=== PATIENT | male | born 1980 | race Hispanic/Latino ===

== ENCOUNTER 2017-12-24 09:52 | Emergency (ER) | payer OTHER ==
[2017-12-24 09:54] VITALS: BMI 38.0
[2017-12-24] MEDS ORDERED: Morphine 4 MG/ML VIAL IVP ONE ×2 (10:12→11:02)
[2017-12-24] MEDS ORDERED: Sodium Chloride 0.9% 1,000 ML IV STA (10:13)
[2017-12-24] MEDS ORDERED: Morphine 4 MG/ML VIAL ONE ×2 (10:14→11:13)
[2017-12-24] MEDS ORDERED: Midazolam 2 MG/2 ML VIAL IV ONE ×3 (10:45→11:42)
[2017-12-24] MEDS ORDERED: Midazolam 2 MG/2 ML VIAL ONE ×3 (11:13→11:35)
--- NOTE | 2017-12-24 12:37 | ED PDOC ---
Upper Extremity Pain/Injury Time Seen by Provider: 12/24/17 09:59 Chief Complaint (Nursing): Upper Extremity Problem/Injury History Per: Patient ([place] He grab the rail with his left arm and felt severe pain. He denies numbness or loss of sensation in the areas below the shoulder or elbow. Pain is severe and he cannot move the shoulder. ) History/Exam Limitations: no limitations Past Medical History Reviewed: Historical Data, Nursing Documentation, Vital Signs Vital Signs: Last Vital Signs Temp 98.2 F 12/24/17 10:54 Pulse 97 H 12/24/17 11:40 Resp 17 12/24/17 11:40 BP 148/73 12/24/17 11:40 Pulse Ox 97 12/24/17 11:20 - Medical History PMH: Anxiety, Hyperthyroidism Denies: Chronic Kidney Disease - Family History Family History: States: No Known Family Hx - Allergies Allergies/Adverse Reactions: Allergies Allergy/AdvReac Type Severity Reaction Status Date / Time amoxicillin Allergy Verified 12/24/17 10:12 Review of Systems ROS Statement: Except As Marked, All Systems Reviewed And Found Negative Constitutional: Negative for: Fever, Chills Musculoskeletal: Positive for: Shoulder Pain Physical Exam - Reviewed Nursing Documentation Reviewed: Yes Vital Signs Reviewed: Yes - Physical Exam Appears: Positive for: Well, Non-toxic, No Acute Distress, Uncomfortable Head Exam: Positive for: ATRAUMATIC, NORMAL INSPECTION, NORMOCEPHALIC Skin: Positive for: Normal Color, Warm, DRY Eye Exam: Positive for: Normal appearance ENT: Positive for: Normal ENT Inspection Neck: Positive for: Normal, Painless ROM Cardiovascular/Chest: Positive for: Regular Rate, Rhythm Respiratory: Positive for: CNT, Normal Breath Sounds Gastrointestinal/Abdominal: Positive for: Normal Exam, Soft Back: Positive for: Normal Inspection Extremity: Positive for: Normal ROM Neurologic/Psych: Positive for: Alert, Oriented - ECG O2 Sat by Pulse Oximetry: 97 Medical Decision Making Medical Decision Making: Patient underwent conscious sedation with the use of morphine and versed for analgesia, anxiolysis. His vitals signs were monitored as per protocol by RN. Patient remained hemodynamically stable throughout. He tolerated the procedure well. Post reduction x-rays of the same shoulder shows good re-placement of the joint. Procedures - Joint Reduction Joint Reduction Site: shoulder (L) Conscious Sedation: Yes (Consent obtained for both sedation and procedure.) Reduction Attempts: 1 Pre-Procedure NV Exam: Yes Post Joint Reduction Film: joint reduced Disposition - Clinical Impression Clinical Impression: Shoulder dislocation - Patient ED Disposition Is Patient to be Admitted: No Doctor Will See Patient In The: Office Counseled Patient/Family Regarding: Diagnosis, Need For Followup - Disposition Disposition: Routine/Home Disposition Time: 13:00 Condition: STABLE Additional Instructions: Followup with your PMD near home for referral to an orthopedist. Instructions: Shoulder Dislocation
[2017-12-24 13:47] VITALS: BP 142/75; PULSE 79; RESP 15; TEMP 98.1; O2SAT 99
--- NOTE | 2017-12-24 14:29 | RAD ---
Date of service: 12/24/2017 PROCEDURE: Radiographs of the Left Shoulder HISTORY: felt shoulder pop during fall COMPARISON: No prior. FINDINGS: BONES: Anterior inferior dislocation of the left humeral head at the glenohumeral joint. The acromioclavicular joint is unremarkable appearing. No destructive bony lesion or fracture identified. JOINTS: As above. SOFT TISSUES: Normal. OTHER FINDINGS: None. IMPRESSION: Anteroinferior dislocation of the left humeral head relative to the glenoid process left shoulder. No fracture identified.
--- NOTE | 2017-12-24 15:02 | RAD ---
Date of service: 12/24/2017 PROCEDURE: Radiographs of the Left Shoulder HISTORY: post reduction COMPARISON: No prior. FINDINGS: BONES: Normal. No fracture. JOINTS: Normal. Glenohumeral and acromioclavicular joints preserved. No osteoarthritis. SOFT TISSUES: Normal. OTHER FINDINGS: None. IMPRESSION: Normal radiographs of the left shoulder.
== END 2017-12-24 13:47 | disposition home or self-care (01) ==
LOC: H.ER 09:52
DX: S43.005A Unspecified dislocation of left shoulder joint, initial encounter (principal); W19.XXXA Unspecified fall, initial encounter; Y92.89 Other specified places as the place of occurrence of the external cause; E05.90 Thyrotoxicosis, unspecified without thyrotoxic crisis or storm; F41.9 Anxiety disorder, unspecified
CPT/HCPCS: 23655; 73030; 96374; 96375; 96376; 99284; J1885; J2250; J2270; J2405; J7030